=== PATIENT | male | born 1955 | race Caucasian/White ===

== ENCOUNTER 2016-05-07 09:14 | Emergency (ER) | payer OTHER ==
--- NOTE | ~2016-05-07 | EKG ---
PATIENT: FRANCO MARIE UNIT #: [id number] Ventricular Rate: 60 BPM Atrial Rate: 60 BPM P-R Interval: 168 ms QRS Duration: 92 ms Q-T Interval: 410 ms QTC Calculation(Bezet): 410 ms P [place]: 51 degrees Calculated R [place]: 51 degrees Calculated T [place]: 18 degrees Diagnosis Line: Normal sinus rhythm Diagnosis Line: T wave abnormality, consider inferolateral Diagnosis Line: ischemia Diagnosis Line: Abnormal ECG Diagnosis Line: When compared with ECG of 26-APR-2016 08:04, Diagnosis Line: Inverted T waves have replaced nonspecific T wave Diagnosis Line: abnormality in Inferior leads Diagnosis Line: Confirmed by ALEXANDRA DECKER MD ([id number]) on 05/07/2016 Diagnosis Line: 6:25:08 PM INTERPRETING MD: JERONIMO SARAH
--- NOTE | ~2016-05-07 | CR72 ---
[facility] A Service of [facility] & [facility] RADIOLOGY TEXT RESULTS PATIENT: FRANCO MARIE LOCATION: [facility] : 53 UNIT #: [id number] AGE: [address]: Brennon Cardoso MD SEX: M ORDER DR: [id number] [facility] [address] [place], [place] [address] [id number] MR#: [id number] Acc #: [id number] NAME: FRANCO MARIE : 1955 SEX: M STUDY DATE/TIME: 05/07/2016 8:48 UNIT: [facility] ROOM: STUDY DESCRIPTION: CR Chest Single View Portable Attending Physician: Brennon Cardoso M.D. Ordering Physician: Brennon Cardoso M.D. Primary Care Physician: Primary Care Physician No MEDICAL IMAGING REPORT This report is preliminary unless electronic signature is present EXAM Frontal chest 05/07/2016 HISTORY 61-year-old male with shortness of air for two days. Tobacco abuse 25 years. TECHNIQUE Frontal chest compared to 05/04/2016 FINDINGS Cardiac silhouette is enlarged but stable. Vascularity is unremarkable. Lung volumes are low. There is no effusion or dense consolidation. Advanced degenerative change of the right shoulder. IMPRESSION Low volume image demonstrates stable cardiomegaly. Dictated by... Douglas Curran M.D. THIS IS AN ELECTRONICALLY VERIFIED REPORT Douglas Curran M.D. at 05/07/2016 11:46 AM [facility] TD: 05/07/2016 10:06 JOB #: [id number] MEDICAL IMAGING REPORT COPY
[2016-05-07 09:10] LABS: ARTERIAL BLD GAS O2 SATURATION 96.1 % (90.0-100.0); ARTERIAL BLOOD GAS CARBOXY HB 0.4 %sat (0.0-9.0); ARTERIAL BLOOD GAS HCO3 26.1 mmol/L; ARTERIAL BLOOD GAS MET HB 0.6 %sat (0.0-2.0); ARTERIAL BLOOD GAS PCO2 37.5 mmHg (35.0-45.0); ARTERIAL BLOOD GAS PO2 82.6 mmHg (80.0-100); ARTERIAL BLOOD GAS pH 7.452 (7.350-7.450)
[2016-05-07 09:11] LABS: ARTERIAL BLOOD GAS ALLEN TEST NORMAL; ARTERIAL BLOOD GAS ART SITE RIGHT RADIAL; ARTERIAL DRAW? YES
[~2016-05-07 09:14] MED LIST: ACETAMINOPHEN325 MG PO; ALDACTONE25 MG PO; ASPIRIN81 M2 PO; ASPIRIN81 MG PO; ATORVASTATIN CA80 MG PO; BRILINTA90 MG PO; CARVEDILOL25 MG PO; CLONIDINE PO; FAMOTIDINE PO; FUROSEMIDE40 MG PO; HYDRALAZINE HCL25 MG PO; LASIX PO; LEVAQUIN750 M1 PO; LIPITOR80 MG PO; LISINOPRIL PO; LISINOPRIL20 MG PO; NAPROXEN PO; NITROGLYCERIN0.4 MG SL; NITROGLYGERIN0.4 MG SL; PANTOPRAZOLE SO40 MG PO; PEN-VEE K PO; PROTONIX PO; SYMBICORT INH
[2016-05-07 09:44] LABS: BASOPHIL# 0.1 X10e3 (0-0.3); BASOPHIL% 1.2 % (0-2.5); EOSINOPHIL# 0.3 X10e3 (0-0.7); EOSINOPHIL% 3.2 % (0.0-7.0); HEMATOCRIT 35.4 % (38.0-50.0); HEMOGLOBIN 11.9 gm/dL (13.0-16.0); LYMPHOCYTE# 1.6 X10e3 (1.0-3.5); LYMPHOCYTE% 19.6 % (17.0-45.0); MEAN CELL VOLUME 86.5 FL (83-96); MEAN CORPUSCULAR HEMOGLOBIN 29.1 PG (28-34); MEAN CORPUSCULAR HGB CONC 33.7 g/dL (30-36); MEAN PLATELET VOLUME 10.6 FL (6.5-11.5); MONOCYTE# 0.8 X10e3 (0-1.0); MONOCYTE% 9.9 % (3.0-12.0); NEUTROPHIL# 5.5 X10e3 (1.5-7.1); NEUTROPHIL% 66.1 % (40-75); PLATELET COUNT 177 X10e3 (140-420); RED BLOOD COUNT 4.09 X10e (3.90-5.60); RED CELL DISTRIBUTION WIDTH 13.6 % (11.0-15.5); WHITE BLOOD COUNT 8.2 X10e3 (4.0-10.5)
[2016-05-07 09:48] LABS: DIFF IND NO
[2016-05-07 09:53] LABS: POC - CKMB 2.4 ng/mL (0.0-7.9); POC - TROPONIN <0.05 ng/mL (<=0.05)
[2016-05-07 09:57] LABS: INR 1.1; PARTIAL THROMBOPLASTIN TIME 28.9 SECONDS (23.5-31.3); PROTHROMBIN TIME (PATIENT) 11.4 SECONDS (9.6-11.5)
[2016-05-07 10:16] LABS: ALBUMIN SERUM 3.2 g/dL (3.5-5.0); ALKALINE PHOSPHATASE 77 U/L (32-92); ALT (SGPT) 15 U/L (10-40); AST (SGOT) 15 U/L (10-42); BILIRUBIN, DIRECT 0.1 mg/dL (0.0-0.2); BILIRUBIN,INDIRECT 0.3 mg/dL (0.0-0.9); BILIRUBIN,TOTAL 0.4 mg/dL (0.2-2.0); BLOOD UREA NITROGEN 22 mg/dL (9-23); BUN/CREATININE RATIO 18.33; CALCIUM SERUM 8.7 mg/dL (8.4-10.2); CARBON DIOXIDE 26 mmol/L (22-31); CHLORIDE 105 mmol/L (100-111); CREATININE SERUM 1.2 mg/dL (0.6-1.4); GLOM FILT RATE Estimated ABOVE60 mL/min (>60); GLUCOSE FASTING 114 mg/dL (70-110); POTASSIUM 3.9 mmol/L (3.5-5.1); PROTEIN TOTAL SERUM 6.4 g/dL (6.0-8.3); SODIUM 139 mmol/L (135-145)
[2016-05-07 10:41] LABS: AMPHETAMINE NEG (NEG); BARBITURATES NEG (NEG); BENZODIAZEPINES NEG (NEG); COCAINE NEG (NEG); MARIJUANA NEG (NEG); OPIATES NEG (NEG); TRICYCLIC ANTIDEPRESSANTS NEG (NEG); U METHADONE NEG (NEG)
[2016-05-07 11:30] LABS: POC - CKMB 2.6 ng/mL (0.0-7.9); POC - TROPONIN <0.05 ng/mL (<=0.05)
[2016-05-07 13:12] LABS: INFLUENZA A NEG (NEG); INFLUENZA B NEG (NEG)
== END 2016-05-07 13:30 | disposition home or self-care (01) ==
LOC: CED 09:14
PROVIDERS: Emergency Medicine
DX: J44.9 Chronic obstructive pulmonary disease, unspecified (principal); I50.9 Heart failure, unspecified; I25.10 Atherosclerotic heart disease of native coronary artery without angina pectoris; Z79.899 Other long term (current) drug therapy
CPT/HCPCS: 36415; 36600; 71010; 80048; 80076; 80307; 82553; 82803; 83880; 84484; 85025; 85610; 85730; 87804; 93005; 94640; 99284; J2930

== ENCOUNTER 2016-06-05 10:40 | Observation (INO) | payer OTHER ==
--- NOTE | ~2016-06-05 | CO ---
Unit #: [id number] #: [id number] Patient: FRANCO MARIE [id number] [address] [place], [place] [address] [id number] I MR#: [id number] NAME: FRANCO MARIE. ROOM: 66151 Age: 61 Sex: M Admission Date: 06/05/2016 : 1955 Attending Physician: Bunny Casas M.D. Primary Care Physician: Gretta Primary Care Physician Consultation Date: 06/05/2016 CONSULTATION REPORT REASON FOR CONSULT Near syncope. HISTORY OF PRESENT ILLNESS This is a 61-year-old white male, previously known to our group, with a past medical history of coronary artery disease status post recent cardiac catheterization on April 17, 2016 with placement of 3 stents in the right coronary artery. The left circumflex had a 90% stenosis before the obtuse marginal and was not dilated. Two-D echocardiogram was completed and 04/14/2016, which revealed a left ventricular ejection fraction of 30% to 35% with a mildly dilated left atrium and mild mitral and tricuspid regurgitation. Additional history includes chronic systolic congestive heart failure, hypertension, hyperlipidemia, COPD, history of amphetamine use in the past and remote tobacco abuse. The patient presented to the hospital with complaints of dizziness. He states that he was out in his yard and became lightheaded. There were no reports of nausea or vomiting, but he was diaphoretic. He denied chest pain but does admit to chronic shortness of breath. He did note that his legs were recently swollen but resolved. The patient proceeded to the hospital due to dizziness but did not lose consciousness. In the emergency department initial labs revealed a creatinine of 2.3 with a BUN of 43. CK level was high at 467. BNP was 236. Initial cardiac enzymes were negative. EKG revealed some T wave inversion in the anterolateral leads, which was unchanged from previous study. He was admitted for near syncope and acute kidney injury. Cardiology was consulted for further evaluation. The patient states he has been compliant with his medications, but he has seen multiple doctors since being discharged in April 2016. He believes that his Brilinta was stopped and he was changed to another medication; however, details of this are unavailable. The patient's pharmacy was called, and he reportedly refilled his Brilinta on May 27, 2016. However, he does not currently have it in his bag of medications at the bedside. Again, there are no reports of chest pain, but he has had some chronic shortness of breath. PAST MEDICAL HISTORY 1. Coronary artery disease status post cardiac catheterization, 04/17/2016, revealed left main normal. LAD 30% to 40%. Diagonals normal. Left circumflex 90% before the obtuse marginal. Distal right coronary artery 90%. Mid right coronary artery 75%. Ejection fraction 30%. 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 Status post PCI and stents x3 in the right coronary artery. Left circumflex not dilated. Unit #: [id number] #: [id number] Patient: FRANCO MARIE 2. Two-D echocardiogram, 04/14/2016, revealed left ventricular ejection fraction of 30% to 35%. Mildly dilated left atrium. Mild mitral and tricuspid regurgitation. 3. Chronic systolic congestive heart failure. 4. Hypertension. 5. Hyperlipidemia. 6. COPD. 7. History of amphetamine use. 8. Remote tobacco abuse. PAST SURGICAL HISTORY 1. Cardiac catheterization with PCI and stents April 2016. 2. Cholecystectomy. 3. Vasectomy. HOME MEDICATIONS 1. Aspirin 81 mg p.o. daily. 2. Carvedilol 25 mg p.o. b.i.d. 3. Lasix 40 mg p.o. daily. 4. Lisinopril 20 mg p.o. at bedtime. 5. Metoprolol tartrate 25 mg p.o. daily. 6. Nicotine 21 mg topical daily. 7. Spironolactone 12.5 mg p.o. daily. 8. Vitamin D 30,000 units p.o. weekly on Sundays. 9. Hydralazine 25 mg p.o. b.i.d. 10. Lipitor 80 mg p.o. at bedtime. 11. The patient refilled Brilinta 90 mg p.o. b.i.d. on 05/27/2016, but this medication is not currently on his active med list or in his bag of medications at the bedside. ALLERGIES No known drug allergies. SOCIAL HISTORY The patient is a reformed smoker and recently quit in April 2016. He has been using nicotine patches. There are no reports of alcohol or active illicit drug use. Does have a history of amphetamine use. FAMILY HISTORY Contributory for heart disease. REVIEW OF SYSTEMS A 10-point review of systems is negative except for details noted above in HPI. PHYSICAL EXAMINATION VITAL SIGNS: Temperature 97.3, pulse 58, blood pressure 155/90; previous blood pressure 99/46. CONSTITUTIONAL: This is a 61-year-old white male in no acute distress. SKIN: Warm and dry. NECK: Supple. No jugular vein distention. No hepatojugular reflux. Normal carotid upstrokes. No carotid bruits auscultated. HEART: S1, S2. Regular rate and rhythm. No murmurs, rubs or gallops. LUNGS: Bilateral breath sounds have good air entry throughout all lung carnes. Respirations are even and unlabored. No rales, rhonchi or wheezes. ABDOMEN: Soft, nontender, nondistended. Positive bowel sounds auscultated x4 quadrants. No ascites noted. EXTREMITIES: Bilateral lower extremities have +1 edema. DP and PT pulses Unit #: [id number] #: [id number] Patient: SMALL,FRANCO D are 2+. Capillary refill less than 3 seconds. DIAGNOSTIC STUDIES LABORATORY: White cell count 10.2, hemoglobin 13.2, hematocrit 40, platelets 204. Sodium 137, potassium 3.5, chloride 106, CO2 25, BUN 43, creatinine 2.3; previous creatinine 1.3. Glucose 122. CK 467. BNP 236. Troponin 0.05. IMAGING: Chest x-ray reveals no acute findings. CARDIOVASCULAR: Electrocardiogram reveals sinus rhythm with T wave inversion in the anterolateral leads. IMPRESSION 1. Near syncope. 2. Acute kidney injury. 3. Mild rhabdomyolysis. 4. Borderline hypotension. 5. Coronary artery disease with history of recent PCI and stents x3 in the right coronary artery April 17, 2016. 6. Cardiomyopathy with left ventricular ejection fraction of 30% to 35%. 7. Chronic systolic congestive heart failure, compensated. 8. Hyperlipidemia. 9. Remote tobacco abuse. PLAN 1. The patient presented to the hospital with complaints of dizziness. He was admitted for near syncope and acute kidney injury. 2. Cardiology was consulted for further evaluation. 3. The patient's symptoms are likely from medications and/or dehydration. He has been started on gentle IV fluids. 4. MARTÍN inhibitor and diuretics have been placed on hold for the time being. 5. There are no reports of chest pain. The patient states he has been compliant with his medications, but Brilinta is not on his active med list. Brilinta has been restarted, and the importance of this medication, as well as aspirin, has been discussed with the patient and his spouse. 6. There is some mild edema on exam but no overt failure. 7. Orthostatic vital signs will be obtained once the patient is hydrated. 8. A TSH and fasting lipid profile will be assessed. 9. Carotid Doppler will be ordered to rule out carotid disease, as the patient is known to have coronary disease and now has dizziness. 10. The patient's ejection fraction was low at 30% in April 2016. He will need an outpatient two-D echocardiogram to reassess LV function. If ejection fraction is less than or equal to 35%, he will need an AICD. Dictated by... Teresita Todd APRN for Stanislaw Riddle/miko TD: 06/10/2016 09:22 JOB #: [id number] Unit #: [id number] #: [id number] Patient: FRANCO MARIE CONSULTATION REPORT Page 1 of 1 X X CONSULTATION REPORT
--- NOTE | ~2016-06-05 | DS ---
Unit #: [id number] #: [id number] Patient: FRANCO MARIE [id number] [address] [address] [id number] I MR#: [id number] NAME: FRANCO MARIE. ROOM: 33152 Age: 61 Sex: M Admission Date: 06/05/2016 : 1955 Discharge Date: 06/06/2016 Attending Physician: Bunny Casas M.D. Primary Care Physician: Primary Care Physician No DISCHARGE SUMMARY REASON FOR ADMISSION Near syncopal episode. HISTORY OF PRESENT ILLNESS/HOSPITAL COURSE The patient is a 61-year-old male with past medical history of coronary artery disease, hypertension, hyperlipidemia, heart failure, COPD, and sleep apnea, who presented secondary to above. The patient was in his usual state of health until the morning of admission, when he felt as though he was likely to pass out. Please see H and P for complete details. In regard to the same consultation was placed to Dr. Licona of Cardiology Services as he had seen the patient in the past. Through initial laboratory studies, it was also noted that he did have an elevated creatinine of 2.3. His baseline creatinine is closer to 1.2. He was admitted for near syncope and acute kidney injury. We placed consultation to Dr. Licona, who saw and evaluated the patient and recommended that he discontinue his lisinopril as well as Aldactone and place him on hydralazine. He also stated that in the past Brilinta had caused him to be having increased nausea as well as difficulty with breathing, and therefore, in regard to the same, change was made to Plavix at the time of discharge. At this point in time, this morning his current creatinine now stands at 1.4. GFR 53. LDL of 103. Dr. Anthony saw and evaluated the patient earlier this morning and stated that the patient was stable to be discharged home with outpatient followup with Dr. Licona. FINAL DISCHARGE DIAGNOSES 1. Near syncopal episode. 2. Nausea/shortness of breath secondary to Brilinta. 3. Acute kidney injury, now resolved. 4. Chronic kidney disease, likely stage 3/4 at baseline of 1.2. 5. Coronary artery disease, status post stent placement. 6. History of systolic heart failure with an ejection fraction 30% to 35%. Last 2D echocardiogram in 04/2016. 7. Hypertension. 8. Hyperlipidemia. 9. Chronic obstructive pulmonary disease. 10. Sleep apnea, noncompliant with CPAP. Unit #: [id number] #: [id number] Patient: FRANCO MARIE 11. Reformed tobacco abuse. DISCHARGE INSTRUCTIONS Follow up with Dr. Licona as previously scheduled. FINAL DISCHARGE MEDICATIONS Aspirin 81 mg p.o. daily, hydralazine 25 mg p.o. b.i.d., Lopressor 25 mg p.o. b.i.d., Plavix 75 mg p.o. b.i.d., vitamin D 50,000 units p.o. q.week, and Lipitor 80 mg p.o. q.h.s. DISCHARGE CONDITION Stable. DISCHARGE DISPOSITION Home. Dictated by... Bunny Casas M.D. JESSICA/anand TD: 06/07/2016 02:37 JOB #: [id number] DISCHARGE SUMMARY Page 1 of 1 X Bunny Casas MD X DISCHARGE SUMMARY
--- NOTE | ~2016-06-05 | CR72 ---
[facility] A Service of [facility] & [facility] RADIOLOGY TEXT RESULTS PATIENT: FRANCO MARIE [facility] [address] : [birth year] UNIT #: [id number] AGE: [address]: Fantasma Mcintosh MD SEX: M ORDER DR: [id number] [facility] [address] [place], [place] [address] [id number] E MR#: [id number] Acc #: [id number] NAME: FRANCO MARIE. : 1955 SEX: M STUDY DATE/TIME: 06/05/2016 10:06 UNIT: [facility] ROOM: STUDY DESCRIPTION: CR Chest Single View Portable Attending Physician: Shelly Oliveros M.D. Ordering Physician: Shelly Oliveros M.D. Primary Care Physician: No Primary Care Physician MEDICAL IMAGING REPORT This report is preliminary unless electronic signature is present EXAM Portable chest INDICATION 61-year-old male with shortness of breath today. COMPARISON 05/07/2016 FINDINGS The lungs are well-expanded. No acute infiltrate. Heart size is stable. Degenerative changes of the right shoulder. IMPRESSION No active disease. Dictated by... Bhargav Nunn M.D. THIS IS AN ELECTRONICALLY VERIFIED REPORT Bhargav Nunn M.D. at 06/05/2016 5:00 PM ANA/allison TD: 06/05/2016 11:50 JOB #: [id number] MEDICAL IMAGING REPORT Page 1 of 1 COPY
--- NOTE | ~2016-06-05 | HP ---
Unit #: [id number] #: [id number] Patient: FRANCO MARIE [id number] [place], [place] [address] [id number] I MR#: [id number] NAME: FRANCO MARIE. ROOM: 78273 Age: 61 Sex: M Admission Date: 06/05/2016 : 1955 Attending Physician: Fantasma Mcintosh M.D. Primary Care Physician: No Primary Care Physician HISTORY AND PHYSICAL CHIEF COMPLAINT Near syncope. HISTORY OF PRESENT ILLNESS The patient is a 61-year-old male with a past medical history of coronary artery disease, hypertension, hyperlipidemia, congestive heart failure, chronic obstructive pulmonary disease and obstructive sleep apnea. The patient presented to the emergency department for evaluation of the above. The patient states that he was in his usual state of health until the morning of admission, when he felt like he would pass out. Apparently he had been up late. He was looking for night crawlers around 3 to 4 o'clock on the morning of admission. He states that he felt tired and went inside. He states that he pain in his left thigh that is not a new problem. He then felt like he was going to pass out. He denies any chest pain. He did have some associated nausea and diaphoresis. He stated that it lasted about 30 minutes. He is now almost back to baseline. He denies any similar episode. He states that he has had intermittent diarrhea. He denies any urinary symptoms. In the emergency department an EKG was done and showed normal sinus rhythm with T wave inversion in leads V2 through V6 that is not new. Cardiac enzymes are negative. Laboratory is notable for BUN and creatinine of 43 and 2.3 respectively. He is being admitted to [facility] for evaluation and further treatment. He did receive a 500 mL normal saline bolus in the emergency department. PAST MEDICAL HISTORY 1. Admission to [facility] 04/24/2016 for dizziness and blurred vision. 2. Coronary artery disease, status post cardiac stent placement. 3. Hypertension. 4. Hyperlipidemia. 5. Congestive heart failure. The patient had an echocardiogram 04/14/2016 that showed an ejection fraction of 30%-35%. He sees Dr. Licona. 6. Chronic obstructive pulmonary disease, not on home oxygen. The patient has seen Dr. Torres in the past. 7. Obstructive sleep apnea. Noncompliant with CPAP. PAST SURGICAL HISTORY 1. Cholecystectomy. 2. Vasectomy. 3. Cardiac stent placement. Unit #: [id number] #: [id number] Patient: FRANCO MARIE SOCIAL HISTORY The patient is a former smoker. There is no alcohol or illicit drug use. FAMILY HISTORY Notable for his mother dying at the age of 58. She had hepatitis and was status post liver transplant. His dad at the age of 58 of heart problems. ALLERGIES No known drug allergies. CURRENT MEDICATIONS 1. Aspirin 81 mg daily. 2. Coreg 25 mg b.i.d. 3. Lasix 40 mg daily. 4. Lisinopril 20 mg daily. 5. Metoprolol 25 mg b.i.d. 6. Aldactone 12.5 mg daily. 7. Vitamin D 50,000 units weekly. 8. Hydralazine 25 mg b.i.d. 9. Lipitor 80 mg at bedtime. REVIEW OF SYSTEMS A complete review of systems is negative except as indicated in history of present illness. The patient states that he did have runny nose on the day prior to admission. Otherwise no cough or cold symptoms. PHYSICAL EXAMINATION GENERAL: The patient is a male who is awake and alert, in no acute distress. VITALS: Temperature 97.3, pulse 60, respiratory rate 20, blood pressure 110/62, oxygen saturation 97% on room air. HEENT: The head is atraumatic. Mucous membranes are moist. NECK: Supple. Trachea midline. LUNGS: Clear to auscultation bilaterally with no increased work of breathing. HEART: Regular rate and rhythm. ABDOMEN: Soft and nontender with bowel sounds present in all four quadrants. EXTREMITIES: Nontender with no pedal edema. NEUROLOGIC: The patient is awake and alert. He follows commands. PSYCHIATRIC: Mood and affect are normal. The patient is cooperative. SKIN: Skin of examined areas is warm and dry. DIAGNOSTIC STUDIES IMAGING: Chest x-ray shows no active disease. LABORATORY: Troponin is less than 0.05. CBC is essentially normal. INR is 1.1. CMP is notable for glucose of 122, BUN 43, creatinine 2.3. BNP is 236. CARDIOVASCULAR: EKG shows normal sinus rhythm with rate of 62 beats per minute. There is T wave inversion in leads V2 through V6 that is not new when compared to EKG form 05/07/2016. ASSESSMENT The patient is a 61-year-old male with Unit #: [id number] #: [id number] Patient: FRANCO MARIE 1. Near syncope. 2. Acute kidney injury. The patient's creatinine was 1.2 on 05/07/2016 and it is 2.3 today. The patient was seen in consultation by Dr. Vela 04/25/2016 for acute kidney injury. He had a renal ultrasound on 04/25/2016 that was normal and showed a mildly enlarged prostate, but no significant bladder outlet obstruction. The patient is on Lasix, Aldactone and lisinopril, which could be contributing. 3. History of coronary artery disease, status post cardiac stent placement. 4. History of congestive heart failure with an ejection fraction of 30%-35%, documented on echocardiogram in 04/2016. Followed by Dr. Licona. 5. Hypertension. 6. Hyperlipidemia. 7. Chronic obstructive pulmonary disease. 8. Obstructive sleep apnea, noncompliant with CPAP. 9. Former smoker. PLAN 1. Admit for observation to intermediate level. 2. Two gram sodium 1800 mL fluid restricted heart rate healthy diet. 3. Fall precautions. 4. Bedrest. 5. Orthostatics q. shift. 6. Serial cardiac enzymes. 7. Consult Dr. Licona regarding near syncope. 8. Urine sodium, creatinine and eosinophils. 9. Check CPK. 10. Strict ins and outs. 11. Urinalysis with culture and sensitivity. 12. Bladder scan. Check postvoid residual. 13. Hold Lasix, Aldactone and lisinopril. 14. Supplemental oxygen. 15. P.r.n. duo-nebs. 16. P.r.n. Tylenol. 17. SCDs for DVT prophylaxis. 18. Repeat labs in the morning, including magnesium and phosphorus. 19. Additional workup and consultants based on the above. Dictated by Bernie Tierney M.D. Herb TD: 06/05/2016 14:36 JOB #: [id number] HISTORY AND PHYSICAL Page 1 of 1 X Bernie Tierney MD X HISTORY AND PHYSICAL
--- NOTE | ~2016-06-05 | US37 ---
[facility] A Service of [facility] & [facility] RADIOLOGY TEXT RESULTS PATIENT: FRANCO MARIE LOCATION: [facility] [address]-06 : [birth year] UNIT #: [id number] AGE: [address]: Bunny Casas MD SEX: M ORDER DR: [id number] [facility] [address] [place], [place] [address] [id number] I MR#: [id number] Acc #: [id number] NAME: FRANCO MARIE. : 1955 SEX: M STUDY DATE/TIME: 06/05/2016 20:02 UNIT: [facility] ROOM: 50185 STUDY DESCRIPTION: US Carotid W/Doppler Bilateral Attending Physician: Bunny Casas M.D. Ordering Physician: Isaak Licona M.D. Primary Care Physician: No Primary Care Physician MEDICAL IMAGING REPORT This report is preliminary unless electronic signature is present EXAM Carotid duplex scan. DATE OF EXAM 06/05/2016 HISTORY Syncope. Hypertension. Hyperlipidemia. FINDINGS The right common carotid artery has no plaque. The right internal and external carotid arteries are patent without plaque. Peak systolic velocity in the distal right internal carotid artery is 113 cm/sec with an end-diastolic velocity of 22 cm/sec. The ICA:CCA ratio on the right is 1.43. Peak systolic velocity in the right external carotid artery is 162 cm/sec. The right vertebral artery is patent with antegrade flow. The left common carotid artery has no plaque. There is a small amount of heterogeneous plaque in the left carotid bulb which extends up into the proximal internal carotid artery. Peak systolic velocity in the mid left internal carotid artery is 108 cm/sec with an end-diastolic velocity of 15 cm/sec. The ICA:CCA ratio on the left is 1.32. Peak systolic velocity in the left external carotid artery is 135 cm/sec. The left vertebral artery is patent with antegrade flow. IMPRESSION 1. Normal examination of the right internal and external carotid artery. Small amount of plaque, but no significant stenosis (less than 50%) in the left internal carotid artery. No significant stenosis of the left external carotid artery. Patent vertebrae arteries bilaterally with antegrade flow. STS. [facility] A Service of [facility] & [facility] RADIOLOGY TEXT RESULTS PATIENT: FRANCO MARIE LOCATION: [facility] [address]-96 : [birth year] UNIT #: [id number] AGE: [address]: Bunny Casas MD SEX: M ORDER DR: Dictated by... Kareem Mata M.D. THIS IS AN ELECTRONICALLY VERIFIED REPORT Kareem Mata M.D. at 06/11/2016 8:29 AM NADEGE/johana TD: 06/07/2016 00:30 JOB #: [id number] MEDICAL IMAGING REPORT Page 1 of 1 COPY
--- NOTE | ~2016-06-05 | EKG ---
PATIENT: FRANCO MARIE UNIT #: [id number] Ventricular Rate: 56 BPM Atrial Rate: 56 BPM P-R Interval: 170 ms QRS Duration: 90 ms Q-T Interval: 438 ms QTC Calculation(Bezet): 422 ms P Nixa: 50 degrees Calculated R Nixa: 0 degrees Calculated T Nixa: 150 degrees Diagnosis Line: Sinus bradycardia Diagnosis Line: Cannot rule out Inferior infarct (cited on or Diagnosis Line: before 05-JUN-2016) Diagnosis Line: T wave abnormality, consider lateral ischemia Diagnosis Line: Abnormal ECG Diagnosis Line: When compared with ECG of 05-JUN-2016 10:01, Diagnosis Line: (unconfirmed) Diagnosis Line: No significant change was found Diagnosis Line: Confirmed by NICO DO MD ([id number]) on 06/09/2016 Diagnosis Line: 10:36:17 PM INTERPRETING MD: ERNESTINA SARAH
--- NOTE | ~2016-06-05 | EKG ---
PATIENT: FRANCO MARIE UNIT #: [id number] Ventricular Rate: 62 BPM Atrial Rate: 62 BPM P-R Interval: 180 ms QRS Duration: 96 ms Q-T Interval: 448 ms QTC Calculation(Bezet): 454 ms P [place]: 61 degrees Calculated R [place]: 20 degrees Calculated T [place]: 165 degrees Diagnosis Line: Normal sinus rhythm Diagnosis Line: Cannot rule out Inferior infarct , age Diagnosis Line: undetermined Diagnosis Line: T wave abnormality, consider anterolateral Diagnosis Line: ischemia Diagnosis Line: Abnormal ECG Diagnosis Line: When compared with ECG of 07-MAY-2016 08:43, Diagnosis Line: T wave inversion less evident in Inferior leads Diagnosis Line: Confirmed by NICO DO MD ([id number]) on 06/09/2016 Diagnosis Line: 10:28:42 PM INTERPRETING MD: ERNESTINA SARAH
[2016-06-05 10:25] LABS: POC - CKMB 6.5 ng/mL (0.0-7.9); POC - TROPONIN <0.05 ng/mL (<=0.05)
[2016-06-05 10:33] LABS: BASOPHIL# 0.1 X10e3 (0-0.3); BASOPHIL% 0.6 % (0-2.5); EOSINOPHIL# 0.1 X10e3 (0-0.7); EOSINOPHIL% 0.8 % (0.0-7.0); HEMOGLOBIN 13.2 gm/dL (13.0-16.0); INR 1.1; LYMPHOCYTE# 1.2 X10e3 (1.0-3.5); LYMPHOCYTE% 12.2 % (17.0-45.0); MEAN CELL VOLUME 86.7 FL (83-96); MEAN CORPUSCULAR HEMOGLOBIN 28.6 PG (28-34); MEAN PLATELET VOLUME 10.5 FL (6.5-11.5); MONOCYTE# 0.7 X10e3 (0-1.0); MONOCYTE% 6.6 % (3.0-12.0); NEUTROPHIL# 8.1 X10e3 (1.5-7.1); NEUTROPHIL% 79.8 % (40-75); PARTIAL THROMBOPLASTIN TIME 25.7 SECONDS (23.5-31.3); PLATELET COUNT 204 X10e3 (140-420); PROTHROMBIN TIME (PATIENT) 11.5 SECONDS (9.6-11.5); RED BLOOD COUNT 4.62 X10e (3.90-5.60); RED CELL DISTRIBUTION WIDTH 14.5 % (11.0-15.5); WHITE BLOOD COUNT 10.2 X10e3 (4.0-10.5)
[2016-06-05 10:47] LABS: DIFF IND NO
[2016-06-05 11:08] LABS: BILIRUBIN, DIRECT 0.1 mg/dL (0.0-0.2); BILIRUBIN,INDIRECT 0.9 mg/dL (0.0-0.9); BUN/CREATININE RATIO 18.69; CREATININE SERUM 2.3 mg/dL (0.6-1.4); GLOM FILT RATE Estimated 29.1 mL/min (>60); POTASSIUM 3.5 mmol/L (3.5-5.1); PROTEIN TOTAL SERUM 6.5 g/dL (6.0-8.3)
[2016-06-05 11:39] LABS: POC - CKMB 8.2 ng/mL (0.0-7.9); POC - TROPONIN <0.05 ng/mL (<=0.05)
[2016-06-05] MEDS ORDERED: CARVEDILOL25 MG PO (12:53)
[2016-06-05] MEDS ORDERED: ASPIRIN EC81 M1 PO (12:53)
[2016-06-05] MEDS ORDERED: LISINOPRIL20 MG PO (12:54)
[2016-06-05] MEDS ORDERED: LASIX PO (12:54)
[2016-06-05] MEDS ORDERED: METOPROLOL TAR25 MG PO (12:57)
[2016-06-05] MEDS ORDERED: NICOTINE PATCH1 EACH (12:58)
[2016-06-05] MEDS ORDERED: ALDACTONE PO (12:58)
[2016-06-05] MEDS ORDERED: HYDRALAZINE HCL25 MG PO (12:58)
[2016-06-05] MEDS ORDERED: VITAMIN D50000 UNIT PO (12:58)
[2016-06-05] MEDS ORDERED: LIPITOR80 MG PO (12:59)
[2016-06-05 19:15] LABS: %MB 2.3 % (0.0-4.0)
[2016-06-06 01:32] LABS: %MB 2.2 % (0.0-4.0); MB 10.8 ng/ml
[2016-06-06 04:44] LABS: HEMATOCRIT 39.7 % (38.0-50.0); HEMOGLOBIN 12.9 gm/dL (13.0-16.0); MEAN CELL VOLUME 87.8 FL (83-96); MEAN CORPUSCULAR HEMOGLOBIN 28.5 PG (28-34); MEAN CORPUSCULAR HGB CONC 32.4 g/dL (30-36); MEAN PLATELET VOLUME 10.3 FL (6.5-11.5); RED BLOOD COUNT 4.52 X10e (3.90-5.60); RED CELL DISTRIBUTION WIDTH 14.8 % (11.0-15.5)
[2016-06-06 06:07] LABS: CALCIUM SERUM 8.9 mg/dL (8.4-10.2); CREATININE SERUM 1.4 mg/dL (0.6-1.4); GLOM FILT RATE Estimated 53.1 mL/min (>60); MAGNESIUM 2.2 mg/dL (1.6-3.0); POTASSIUM 3.9 mmol/L (3.5-5.1)
== END 2016-06-06 22:19 | disposition home or self-care (01) ==
LOC: CED 10:40 → CEDOF 14:23
PROVIDERS: Emergency Medicine; Family Medicine; Internal Medicine Cardiovascular Disease
DX: R55 Syncope and collapse (principal); R11.0 Nausea; R06.02 Shortness of breath; I25.10 Atherosclerotic heart disease of native coronary artery without angina pectoris; Z95.5 Presence of coronary angioplasty implant and graft; I42.9 Cardiomyopathy, unspecified; I65.22 Occlusion and stenosis of left carotid artery; M62.82 Rhabdomyolysis; E78.5 Hyperlipidemia, unspecified; I13.0 Hypertensive heart and chronic kidney disease with heart failure and stage 1 through stage 4 chronic kidney disease, or unspecified chronic kidney disease; I50.22 Chronic systolic (congestive) heart failure; N18.9 Chronic kidney disease, unspecified; N40.0 Benign prostatic hyperplasia without lower urinary tract symptoms; J44.9 Chronic obstructive pulmonary disease, unspecified; Z87.891 Personal history of nicotine dependence; G47.33 Obstructive sleep apnea (adult) (pediatric); Z79.82 Long term (current) use of aspirin; Z79.899 Other long term (current) drug therapy; Z90.49 Acquired absence of other specified parts of digestive tract; Z98.52 Vasectomy status; Z82.49 Family history of ischemic heart disease and other diseases of the circulatory system; Z84.89 Family history of other specified conditions
CPT/HCPCS: 36415; 71010; 80048; 80061; 80076; 82550; 82553; 83735; 83880; 84443; 84484; 85025; 85027; 85610; 85730; 93005; 93880; 94760; 99285; G0378